=== PATIENT | male | born 1975 | race Two or more races ===

== ENCOUNTER 2019-08-21 00:46 | Inpatient (IN) | payer SELFPAY ==
[~2019-08-21] VITALS: Ht 182.9 cm; Wt 101.6 kg
[2019-08-21] VITALS (7 sets, daily range): BP systolic 121–171; BP diastolic 71–108
--- NOTE | 2019-08-21 01:08 | NUR ---
PT REPORTS CHEST TIGHTNESS AND SOB X1DAY. "I FEEL LIKE MY LUNGS HURT WHEN I COUGH" PT STATED IT STARTED THIS MORNING AT 1100 RADIATING TO THE BACK OF HIS NECK. PT AAOX4, NO ACUTE DISTRESS NOTED. PT CONNECTED TO THE MONITOR AND POX
--- NOTE | 2019-08-21 01:10 | NUR ---
XRAY AT BEDSIDE
--- NOTE | 2019-08-21 03:00 | NUR ---
CONSENT OBTAINED FOR CHEST TUBE INSERTION
[2019-08-21] MEDS ORDERED: LIDOCAINE HCL/PF 1% 30 ML SDV ONE (03:04)
--- NOTE | 2019-08-21 03:10 | NUR ---
ER MD MARINO AT BEDSIDE
[2019-08-21 03:13] LABS: BASOPHILS # (AUTO) 0.1 /CMM (0.0-0.2); BASOPHILS % (AUTO) 0.7 % (0.0-2.0); HEMATOCRIT 46 % (39-51); HEMOGLOBIN 15.5 g/dL (13.5-17.5); LYMPHOCYTES # (AUTO) 2.5 /CMM (0.8-4.8); LYMPHOCYTES % (AUTO) 28.4 % (20.0-44.0); MEAN CORPUSCULAR HGB CONC 34 g/dl (31.0-36.0); MEAN CORPUSCULAR VOLUME 87 fL (80-96); MONOCYTES # (AUTO) 0.8 /CMM (0.1-1.30); MONOCYTES % (AUTO) 8.7 % (2.0-12.0); NEUTROPHILS # (AUTO) 5.4 /CMM (1.8-8.9); NEUTROPHILS % (AUTO) 61.2 % (43.0-81.0); PLATELET COUNT (AUTO) 228 /CMM (150-450); RED BLOOD CELL COUNT(AUTO) 5.33 MIL/uL (4.5-6.0); WHITE BLOOD COUNT (AUTO) 8.9 K/uL (4.3-11.0)
[2019-08-21] MEDS ORDERED: MORPHINE SULFATE INJ 4 MG/ML DISP.SYRIN ONE ×2 (03:18→04:06)
[2019-08-21 03:26] LABS: CARBON DIOXIDE 30 mmol/L (21-32); CHLORIDE 109 mmol/L (98-107); POTASSIUM 3.9 mmol/L (3.5-5.1); SODIUM SERUM 149 mmol/L (136-145)
[2019-08-21 03:29] LABS: ALANINE AMINOTRANSFERASE 40 U/L (12-78); ALBUMIN 4.2 g/dL (3.4-5.0); ALKALINE PHOSPHATASE 76 U/L (46-116); ASPARTATE AMINOTRANSFERASE 20 U/L (15-37); BILIRUBIN,TOTAL 0.3 mg/dL (0.2-1.0); CALCIUM, SERUM 9.2 mg/dL (8.5-10.1); CREATININE 1.1 mg/dL (0.6-1.3); GLUCOSE 104 mg/dL (74-106); TOTAL PROTEIN, SERUM 7.7 g/dL (6.4-8.2); UREA NITROGEN, BLOOD 15 mg/dL (7-18)
[2019-08-21] MEDS ORDERED: MORPHINE SULFATE INJ 2 MG/ML DISP.SYRIN IV ONE ×2 (03:30→05:00)
--- NOTE | 2019-08-21 03:44 | NUR ---
CHEST TUBE INSERTION IN PROGRESS
--- NOTE | 2019-08-21 04:00 | NUR ---
MORPHINE 4MG GIVEN PER ER MD ORDER. JAMILA
--- NOTE | 2019-08-21 04:25 | NUR ---
XRAY AT BEDSIDE
--- NOTE | 2019-08-21 05:13 | NUR ---
PER NURSING SUP. NO ICU BEDS AVAILABLE AT THIS TIME. WILL TRY AGAIN AFTER 0730
[2019-08-21] MEDS ORDERED: MAGNESIUM HYDROXIDE 30 ML UDC PO PRN (05:30)
[2019-08-21] MEDS ORDERED: ONDANSETRON HCL/PF 4 MG/2 ML VIAL IVP PRN (05:30)
[2019-08-21] MEDS ORDERED: ACETAMINOPHEN 325 MG TABLET PO PRN (05:30)
[2019-08-21] MEDS ORDERED: Z GUARD REMEDY 2 OZ OINT TP PRN (05:30)
[2019-08-21] MEDS ORDERED: MAG HYDROX/AL HYDROX/SIMETH 30 ML UDC PO PRN (05:30)
[2019-08-21] MEDS ORDERED: MORPHINE SULFATE INJ 2 MG/ML DISP.SYRIN IV PRN (05:30)
--- NOTE | 2019-08-21 07:49 | NUR ---
nursing sup gave icu bed 250.
--- NOTE | 2019-08-21 08:18 | NUR ---
REPORT GIVEN TO KISHAN OF ICU
--- NOTE | 2019-08-21 09:15 | NUR ---
TARIFF PUBLISHING AGENT INITIAL NOTE RECEIVED PATIENT AWAKE A/OX4, ABLE TO MAKE NEEDS KNOWN. STATES HE HAS 6/10 PAIN BUT FEELS OK WHEN HE DOESN'T MOVE. ON TELE MONITOR SR. NO DISTRESS NOTED. DENIES SOB. STATES HE FEELS BETTER. NOTED WITH RIGHT LATERAL MID CHEST CHEST TUBE, NO LEAKING NOTED, NO BUBBLES. DRAINING MINIMAL SANGUINOUS OUTPUT. HOB ELEVATED. ORIENTED TO ROOM AND CALL LIGHT SYSTEM. SIDE RAILS UP AND LOCKED. BED KEPT AT LOWEST POSITION. CALL LIGHT KEPT WITHIN EASY REACH. WILL CONTINUE TO MONITOR.
--- NOTE | 2019-08-21 09:16 | NUR ---
TRANSFERRED TO ICU WITH RN AND TECH
[2019-08-21] MEDS: IV NS 0.9% 1,000 ML IV PRN (09:37)
[2019-08-21] MEDS: HYDROCODONE/APAP 5/325MG 1 EACH TABLET PO PRN ×2 (09:37→21:54)
--- NOTE | 2019-08-21 10:09 | NUR ---
BOILERMAKER'S ASSISTANT NOTE SEEN AND EXAMINED BY DR. ZHANG. INFORMED REGARDING PATIENTS ELEVATED BLOOD PRESSURE WITH ORDERS TO START AMLODIPINE 5MG DAILY.
[2019-08-21] MEDS: AMLODIPINE BESYLATE 5 MG TABLET PO SCH (10:30)
--- NOTE | 2019-08-21 12:30 | NUR ---
TRANSFERRED PT TO TELE FLOOR ROOM 107 VIA ACLS PROTOCOL
--- NOTE | 2019-08-21 12:30 | NUR ---
CLAIM REP NOTE CONTINUITY OF CARE ENDORSED TO RN SRINIVAS. ALL BELONGINGS GIVEN WITH PATIENT. PATIENT IN STABLE CONDITION.
--- NOTE | 2019-08-21 18:51 | NUR ---
BELT LACER CLOSING NOTE PATIENT AWAKE A/OX4, ON 02 VIA NC 2L/MIN, SATURATING WELL, RESPIRATIONS EVEN AND UNLABORED, NO SIGNS OF RESPIRATORY DISTRESS NOTED. ON TELE MONITOR SINUS RHYTHM. RIGHT LATERAL MID CHEST TUBE, NO DRAINAGE NOTED, NO LEAKAGE NOTED. IV SITE ON RIGHT AC G18 INTACT, PATENT, NS INFUSING AT 75CC/HR, NO SIGNS OF INFILTRATION NOTED. IV SITE ON LEFT WRIST G20 INTACT, PATENT WITH HEP LOCK IN PLACE. PROVIDED SAFETY AND COMFORT TO PT THROUGHOUT SHIFT. ALL DUE MEDS GIVEN. BED IN LOW POSITION, LOCKED, CALL LIGHT WITHIN REACH. WILL ENDORSE TO NOC SHIFT NURSE.
[2019-08-22] VITALS: BP 140/83
[2019-08-22] MEDS: IV NS 0.9% 1,000 ML IV PRN (00:50)
[2019-08-22] MEDS: HYDROCODONE/APAP 5/325MG 1 EACH TABLET PO PRN ×3 (03:48→20:01)
--- NOTE | 2019-08-22 03:57 | NUR ---
RN NOTE PT RESTING IN BED AND EASILY AROUSABLE. ON 2L OF O2 VIA NC,. RESPIRATIONS EVEN AND UNLABORED. TRACHEA MID LINE. WITH EQUAL CHEST EXPANSION NOTED. NO INDICATIONS OF RESPIRATORY DISTRESS. NOTED WITH DIMINISHED RIGHT SIDED LUNG SOUNDS. VITAL SIGNS WNL. WILL MONITOR.
[2019-08-22 04:00] VITALS: BP 132/90
[2019-08-22 06:03] LABS: BASOPHILS % (AUTO) 0.3 % (0.0-2.0); EOSINOPHILS % (AUTO) 1.2 % (0.0-6.0); HEMATOCRIT 43 % (39-51); HEMOGLOBIN 14.2 g/dL (13.5-17.5); LYMPHOCYTES # (AUTO) 1.8 /CMM (0.8-4.8); MEAN CORPUSCULAR HGB CONC 33 g/dl (31.0-36.0); MEAN CORPUSCULAR VOLUME 87 fL (80-96); MONOCYTES # (AUTO) 0.6 /CMM (0.1-1.30); MONOCYTES % (AUTO) 9.5 % (2.0-12.0); NEUTROPHILS # (AUTO) 3.8 /CMM (1.8-8.9); PLATELET COUNT (AUTO) 195 /CMM (150-450); RED BLOOD CELL COUNT(AUTO) 4.92 MIL/uL (4.5-6.0); WHITE BLOOD COUNT (AUTO) 6.3 K/uL (4.3-11.0)
[2019-08-22 06:42] LABS: CALCIUM, SERUM 8.6 mg/dL (8.5-10.1); MAGNESIUM 1.8 mg/dL (1.8-2.4); PHOSPHORUS 3.3 mg/dL (2.5-4.9)
[2019-08-22 07:01] LABS: THYROID STIMULATING HORMONE 1.359 uIU/mL (0.358-3.74)
--- NOTE | 2019-08-22 07:19 | NUR ---
RN NOTE PT AWAKE AND ALERT IN BED. NO INDICATIONS OF ACUTE DISTRESS. RESPIRATIONS EVEN AND UNLABORED. BILATERAL EQUAL CHEST EXPANSION NOTED. ON 2L OF O2 VIA NC. ON TELE MONITOR SINUS RYTHM. DENIES PAIN OR DISCOMFORT AT THIS TIME. WITH RIGHT MID LATERAL CHEST TUBE IN PLACE. WITH IVF RUNNING AND TOLERATING WELL. CALL LIGHT WITHIN REACH, SAFETY MEASURES IN PLACE. ENDORSED TO MORNING SHIFT.
--- NOTE | 2019-08-22 07:26 | NUR ---
SIGNAL PROCESSING ENGINEER OPENING NOTE PATIENT AWAKE A/OX4, ON 02 VIA NC 2L/MIN, SATURATING WELL, RESPIRATIONS EVEN AND UNLABORED, NO SIGNS OF RESPIRATORY DISTRESS NOTED. ON TELE MONITOR SINUS RHYTHM. RIGHT LATERAL MID CHEST TUBE IN PLACE, NO DRAINAGE NOTED, NO LEAKAGE NOTED. IV SITE ON RIGHT AC G18 INTACT, PATENT, NS INFUSING AT 75CC/HR, NO SIGNS OF INFILTRATION NOTED. IV SITE ON LEFT WRIST G20 INTACT, PATENT WITH HEP LOCK IN PLACE. BED IN LOW POSITION, LOCKED, CALL LIGHT WITHIN REACH.
[2019-08-22 08:00] VITALS: BP 171/82
[2019-08-22] MEDS: AMLODIPINE BESYLATE 5 MG TABLET PO SCH (08:11)
--- NOTE | 2019-08-22 09:50 | NUR ---
RECEIVED CALL FROM RADIOLOGY, NOTIFIED THAT CHEST X RAY FROM TODAY SHOWS CHEST TUBE SLIGHTLY PULLED OUT AND PNEUMOTHORAX INCREASING IN SIZE. NOTIFIED DR. ARRINGTON AND DR. ANDERSON.
--- NOTE | 2019-08-22 11:48 | NUR ---
SPOKE WITH DR. GRANADOS, NOTIFIED OF PT'S CHEST X RAY RESULTS AND CONDITION. DR STATED HE WILL SEE PATIENT LATER TODAY.
[2019-08-22 12:00] VITALS: BP 137/84
[2019-08-22 16:00] VITALS: BP_SYST 103; BP_SYST 156; BP_DIAS 63; BP_DIAS 91
--- NOTE | 2019-08-22 18:09 | NUR ---
DR. GRANADOS BY BEDSIDE. REMOVED CHEST TUBE. ORDERED XRAY FOR 08/23/19. STATED THAT IF PNEUMOTHORAX HAS NOT CHANGED IN SIZE, HE IS CLEARING PT FOR DISCHARGE.
--- NOTE | 2019-08-22 18:37 | NUR ---
SCRIPT READER CLOSING NOTE PATIENT AWAKE A/OX4, ON 02 VIA NC 2L/MIN, SATURATING WELL, RESPIRATIONS EVEN AND UNLABORED, NO SIGNS OF RESPIRATORY DISTRESS NOTED. ON TELE MONITOR SINUS RHYTHM. IV SITE ON RIGHT AC G18 INTACT, PATENT, NS INFUSING AT 75CC/HR, NO SIGNS OF INFILTRATION NOTED. IV SITE ON LEFT WRIST G20 INTACT, PATENT WITH HEP LOCK IN PLACE. BED IN LOW POSITION, LOCKED, CALL LIGHT WITHIN REACH. PROVIDED SAFETY AND COMFORT TO PT THROUGHOUT SHIFT, ALL DUE MEDS GIVEN. WILL ENDORSE TO NOC SHIFT NURSE.
--- NOTE | 2019-08-22 19:11 | NUR ---
CHANGE OF SHIFT REPORT Patient in bed, A/O x4. Sinus rhythm in the Tele monitor. Reports right hip pain and right arm pain, will medicate. On supplemental Oxygen at 2LPM via NC. Maintained safety.
[2019-08-22 20:00] VITALS: BP_SYST 130; BP_SYST 150; BP_DIAS 78
[2019-08-23] VITALS (7 sets, daily range): BP systolic 145–155; BP diastolic 81–95
--- NOTE | 2019-08-23 01:47 | NUR ---
ROUNDED WITH DR AJAY MENDOZA. ACCORDING TO TODAYS CHEST XRAY, THE PNEUMOTHORAX DECREASED FROM 60% TO 30%. CHEST TUBE REINSERTION IS NOT REQUIRED BECAUSE THE PNTX DECREASED SIGNIFICANTLY. ORDERED ANOTHER XRAY FOR TOMORROW TO SEE IF IT CONTINUES TO GET SMALLER. AFTER THE PATIENT IS CLEARED BY THE PULMONARY, DR MOSS WANTS TO DISCHARGE THE PATIENT. WILL ENDORSE TO NEXT NURSE TO NOTIFY DR MOSS ONCE THE PATIENT IS CLEARED BY PULMONARY DOCTOR. PATIENT IS ALLOWED TO TAKE A SHOWER, WAS INSTRUCTED TO COVER THE DRESSING WITH WATERPROOF TEGADERM. COVERED THE DRESSING AND ALL IV SITES AND ALLOWED THE PATIENT TO SHOWER. WILL CONTINUE TO MONITOR. Addendum: 08/24/19 at 0553 by VELIA STROUD RN WRONG TIME WAS ENTERED. SUPPOSED TO BE 08/23/19 1347.
--- NOTE | 2019-08-23 06:32 | NUR ---
END OF SHIFT REPORT Patient in bed, A/O x4. Sinus rhythm, Sinus Cecilio in the Tele monitor. Remains on supplemental Oxygen at 2LPM via NC, denies shortness of breath at rest and with exertion. Right chest tube site dressing clean and dry, no bleeding. Right hip pain relieved with PRN [place]. Maintained safety. Plan XR Chest today. Will endorse to Oncoming RN.
--- NOTE | 2019-08-23 07:51 | NUR ---
RN OPENING NOTES RECEIVED PATIENT ASLEEP IN BED, AO X4, ON TELE MONITOR WITH SINUS RHYTHM/SINUS ALAN WITH LOWEST HR BEING 57BPM. PATIENT IS ON 2L OXYGEN VIA NASAL CANULA, SATURATING WELL AT 99%. DENIES SOB, NO SIGNS AND SYMPTOMS OF RESPIRATORY DISTRESS NOTED, CHEST TUBE WAS REMOVED ON 08/22, X RAY WILL BE DONE TODAY. SAFETY MAINTAINED, CALL LIGHT WITHIN REACH, WILL CONTINUE TO MONITOR.
[2019-08-23] MEDS: AMLODIPINE BESYLATE 5 MG TABLET PO SCH (08:30)
[2019-08-23] MEDS: HYDROCODONE/APAP 5/325MG 1 EACH TABLET PO PRN ×3 (08:31→19:29)
[2019-08-24] VITALS: BP 146/95
[2019-08-24] MEDS: HYDROCODONE/APAP 5/325MG 1 EACH TABLET PO PRN ×2 (00:14→10:39)
--- NOTE | 2019-08-24 03:37 | NUR ---
PATIENT IS SLEEPING, WAS COMPLAINING OF PAIN AT THE SITE OF THE CHEST TUBE. ADMINISTERED PRN NORCO AT 0014. PAIN IMPROVED FROM A 9 TO A 3. PATIENT IS CURRENTLY SLEEPING. ALL NEEDS MET, NO ACUTE CHANGES TO PATIENT CONDITION.
[2019-08-24 04:00] VITALS: BP 136/85
--- NOTE | 2019-08-24 07:30 | NUR ---
RECEIVED PT. ALERT AND ORIENTED X4.RT. CHEST DRESSING DRY AND INTACT..
--- NOTE | 2019-08-24 07:43 | NUR ---
RN CLOSING NOTES NO ACUTE CHANGES TO PATIENT CONDITION DURING MY SHIFT. PATIENT IS IN STABLE CONDITION, NO SIGNS OF RESPIRATORY DISTRESS IS NOTED. SATURATING WELL ON ROOM AIR AND OCCASIONALY ON 2L OF OXYGEN VIA NC FOR COMFORT. PATIENT GOT DOWNGRADED TO MED SURG LEVEL, TELEMETRY BOX REMOVED. NORCO WAS ADMINISTERED FOR PAIN, LAST TIME IT WAS GIVEN WAS @ 0014. CHEST XRAY IS SCHEDULED FOR MORNING. ENDORSED TO MOTOR LODGE CLERK NURSE TO NOTIFY THE HOSPITALIST WHEN THE RESULTS ARE IN AND PULMONARY CLEARS THE PATIENT. SAFETY MAINTAINED, ALL PATIENT NEEDS MET, CALL LIGHT TALON SIMMONS. ENDORSED TO [facility] SHIFT NURSE TO CONTINUE CARE.
[2019-08-24 08:00] VITALS: BP 153/100
[2019-08-24] MEDS: AMLODIPINE BESYLATE 5 MG TABLET PO SCH (09:16)
[2019-08-24 16:00] VITALS: BP 152/100
--- NOTE | 2019-08-24 16:00 | NUR ---
MEDICATED X1 WITH NORCO FOR CHEST PAIN,WITH GOOD EFFECT.
[2019-08-24] MEDS ORDERED: HYDR-4384 PO ×2 (16:31→16:38)
--- NOTE | 2019-08-24 17:15 | NUR ---
PT'S HERE.RT. CHEST DRESSING DRY AND INTACT.VS STABLE.AJAY MENDOZA GOLD LEAF LABORER IN AND HE AND DR. ANDERSON AGREED ON DISCHARGE.BELONGING SHEET SIGNED WELL ALL PAPERS.AWARE TO GO TO HIS PHARM. AND BUILDING PRESSURE WASHER RX FOR PAIN.AWARE TO KEEP CHEST DRESSING DRY AND INTACT.TO CONTACT DR. ANDERSON FOR APPT. AND TO FOLLOW UP WITH GETTING A PRIVATE MD.AWARE OF S/SYMPTOMS TO REPORT.AND TO RETURN TO ER WITH ANY PROBLEMS.TAKEN VIA W/C TO LOBBY ACCOMPANIED BY COAL DELIVERER AND .
== END 2019-08-24 17:15 | disposition home or self-care (01) | DRG 199 ==
LOC: ER 00:50 → ICU 08:04 → TELE1 12:15 → MEDSG1 08-23 08:37
PROVIDERS: ADMIT Internal Medicine; ATTEND Nurse Practitioner Acute Care
PROC: 0W9930Z Drainage of Right Pleural Cavity with Drainage Device, Percutaneous Approach (ICD-10-PCS; principal; 2019-08-21)
DX: J93.83 Other pneumothorax (principal); J96.01 Acute respiratory failure with hypoxia; E87.0 Hyperosmolality and hypernatremia; J98.11 Atelectasis; J93.0 Spontaneous tension pneumothorax; F17.210 Nicotine dependence, cigarettes, uncomplicated; I10 Essential (primary) hypertension
CPT/HCPCS: 36415; 71045-TC; 80048-TC; 80053-TC; 80061-TC; 83735-TC; 84100-TC; 84443-TC; 84484-TC; 85025-TC; 87081-TC; 93307-TC; A6253; A6403; C1894; G0378; J2270; J3490; J7030

== ENCOUNTER 2019-08-27 23:00 | Emergency (ER) | payer SELFPAY ==
[~2019-08-27] VITALS: Ht 180.3 cm; Wt 96.2 kg
[~2019-08-27 23:00] MED LIST: HYDR-4384 PO
--- NOTE | 2019-08-27 23:24 | NUR ---
PT CAME TO ER BED 11 C/O SOB TODAY MORNING AND BEFORE BEDTIME. PT STATES HIS LAST VISIT ON THURSDAY MORNING (08/14/2019) THAT HE HAD A CHEST TUBE INSERTION FOR HIS COLLAPSED LUNG. PATIENT STATES HE WAS RELEASED AND DISCHARGED ON THURSDAY. LACEY DENIES SOB. AAOX4. BREATHING EVENLY AND UNLABORED ON ROOM AIR. CONNECTED TO MONITOR.
[2019-08-27 23:27] VITALS: BP 152/101
== END 2019-08-28 01:25 | disposition home or self-care (01) ==
LOC: ER 23:03
DX: J93.9 Pneumothorax, unspecified (principal)
CPT/HCPCS: 71045-TC